=== PATIENT | male | born 1990 | race Caucasian/White ===

== ENCOUNTER 2019-05-17 17:18 | Emergency (ER) | payer BC ==
[~2019-05-17] VITALS: Ht 185.4 cm; Wt 105.2 kg
[2019-05-17] MEDS ORDERED: KETOROLAC TROMETHAMINE 30 MG/ML VIAL IV STA (17:37)
[2019-05-17] MEDS ORDERED: SODIUM CHLORIDE 0.9% 1000ML 1,000 ML IV SCH (17:45)
[2019-05-17] MEDS ORDERED: PROMETHAZINE 12.5MG/ NACL 0.9% 12.5 MG/50 ML BAG IV ONE (17:45)
[2019-05-17] MEDS ORDERED: DEXAMETHASONE SOD PHOS 10 MG/1 ML VIAL IV ONE (17:45)
[2019-05-17] MEDS ORDERED: BUTALB-ACETAMI1 EACH PO (18:21)
[2019-05-17] MEDS ORDERED: NAPROSYN500 MG PO (18:21)
--- NOTE | 2019-05-17 18:35 | Diagnostic Imaging Report ---
[facility] HISTORY: Headache COMPARISON: None. TECHNIQUE: Noncontrast axial scans were obtained from skull base to the vertex. Coronal and sagittal reconstructions obtained from the axial data. One or more of the following dose reduction techniques were used: Automated exposure control, adjustment of the mA and/or kV according to patient size, and/or utilization of iterative reconstruction technique. Beam hardening artifacts obscure some details. DISCUSSION: Scalp/Skull: Unremarkable. Brain sulci: Appropriate for patient's age. Ventricles: Normal in size and configuration. No hydrocephalus. Extra-axial spaces: Approximately 3.7 cm arachnoid cyst is seen along the posterior right cerebellum; there is mild local mass effect. No additional masses or fluid collections. Parenchyma: No abnormal densities. No mass, hemorrhage, or large vascular territory acute infarct. Dural sinuses: No abnormal densities. Sellar/Suprasellar region: Intact. Skull base: Intact. Incidental findings: Partially visualized layering fluid in the right maxillary sinus. IMPRESSION: 1. Incidental 3.7 cm arachnoid cyst along the posterior right cerebellum. 2. No other intracranial abnormalities. Signed by: Dr. Stephan Ibarra M.D. on 05/17/2019 6:32 PM
== END 2019-05-17 19:00 | disposition home or self-care (01) ==
LOC: FSED 17:18
DX: G44.89 Other headache syndrome (principal); I10 Essential (primary) hypertension; R04.0 Epistaxis; G93.0 Cerebral cysts
CPT/HCPCS: 70450; 80053; 85025; 96376; 99284; J1100; J1885; J2550; 96365